=== PATIENT | male | born 1975 | race Caucasian/White ===

== ENCOUNTER 2024-03-15 09:52 | Inpatient (IN) | payer OTHER ==
[~2024-03-15] VITALS: Ht 172.7 cm; Wt 108.9 kg
[2024-03-15 09:59] VITALS: BP_SYST 211; PULSE 102; RESP 18; TEMP 98.3; O2SAT 96
[2024-03-15 10:47] LABS: BASOPHILS # (AUTO) 0.1 K/uL (0.0-0.2); BASOPHILS % (AUTO) 0.5 % (0.0-2.0); EOSINOPHILS % (AUTO) 0.1 % (0.0-4.0); HEMATOCRIT 50.7 % (36-54); HEMOGLOBIN 17.5 g/dL (14.0-18.0); MEAN CORPUSCULAR HEMOGLOBIN 31 pg (27-31); MEAN CORPUSCULAR HGB CONC 34 % (32-36); MEAN CORPUSCULAR VOLUME 89 fL (79.0-98.0); MONOCYTES # (AUTO) 0.7 K/uL (0.0-1.0); MONOCYTES % (AUTO) 5.8 % (1.7-9.3); NEUTROPHILS # (AUTO) 10.4 K/uL (1.8-7.7); NEUTROPHILS % (AUTO) 85.6 % (40.0-70.0); PLATELET COUNT (AUTO) 257 K/uL (130-430); RED BLOOD CELL COUNT(AUTO) 5.71 MIL/uL (4.2-6.2); RED CELL DISTRIBUTION WIDTH 14.4 % (9.0-15.0); WHITE BLOOD COUNT (AUTO) 12.1 K/uL (4.8-10.8)
[2024-03-15] MEDS: MORPHINE 4 MG INJ. 4 MG/ML VIAL IVP ONE ×2 (10:47→14:02)
[2024-03-15] MEDS: ONDANSETRON HCL 4 MG/2 ML VIAL IVP ONE (10:47)
[2024-03-15 11:06] LABS: BILIRUBIN,DIRECT 0.1 mg/dL (0.0-0.3); CALCIUM 8.7 mg/dL (8.4-11.0); CREATININE 0.9 mg/dL (0.55-1.30); POTASSIUM 3.4 mmol/L (3.5-5.1); TOTAL BILIRUBIN 0.5 mg/dL (0.0-1.0); TOTAL PROTEIN, SERUM 7.9 g/dL (6.4-8.3)
[2024-03-15] MEDS: LABETALOL HCL 20 MG/4 ML CARTRIDGE IVP ONE (11:35)
[2024-03-15] MEDS: ASPIRIN 325 MG TABLET PO ONE (13:12)
[2024-03-15] MEDS: hydrALAZINE HCL 20 MG/ML VIAL IVP ONE (13:12)
[2024-03-15 15:43] VITALS: BP_SYST 170; PULSE 98; RESP 20; TEMP 98.3
[2024-03-15 16:26] VITALS: O2SAT 97
[2024-03-15] MEDS ORDERED: NALOXONE HCL 0.4 MG/ML AMP (NARCAN) IVP PRN (16:30)
[2024-03-15] MEDS: MORPHINE 4 MG INJ. 4 MG/ML VIAL IVP PRN (16:50)
[2024-03-15] MEDS ORDERED: METOPROLOL TARTRATE 50 MG TABLET PO ONE (17:24)
[2024-03-15] MEDS: hydrALAZINE HCL 20 MG/ML VIAL IVP PRN (17:25)
[2024-03-15] MEDS: POTASSIUM CHLORIDE 20 MEQ TABLET.ER PO ONE (18:22)
[2024-03-15] MEDS: METOPROLOL TARTRATE 50 MG TABLET PO ONE (18:23)
[2024-03-15] MEDS: LOSARTAN POTASSIUM 50 MG TABLET (COZAAR) PO ONE (18:23)
[2024-03-15] MEDS: NIFEdipine 30 MG TAB.ER.24 PO ONE (18:23)
[2024-03-15 21:00] VITALS: BP_SYST 178; PULSE 108; RESP 18; TEMP 98.2; O2SAT 95
[2024-03-15] MEDS: METOPROLOL TARTRATE 50 MG TABLET PO SCH (21:05)
[2024-03-15] MEDS: MORPHINE 2 MG/ML INJ. SYRINGE IVP PRN (21:08)
[2024-03-15 22:37] VITALS: O2SAT 95
[2024-03-15 23:29] VITALS: BP_SYST 169; PULSE 107; RESP 18; TEMP 98.2; O2SAT 92
[2024-03-16] VITALS (7 sets, daily range): BP systolic 138–169; PULSE 94–112; RESP 18; TEMP 97.8–99.1; O2SAT 91–95
[2024-03-16 06:56] LABS: FREE T4 (FREE THYROXINE) 0.9 ng/dL (0.6-1.6); THYROID STIMULATING HORMONE 0.43 uIu/mL (0.34-4.82)
[2024-03-16] MEDS: D5NS 1,000 ML IV SCH (06:56)
[2024-03-16 07:12] LABS: BASOPHILS % (AUTO) 0.1 % (0.0-2.0); HEMATOCRIT 49.7 % (36-54); LYMPHOCYTES # (AUTO) 0.9 K/uL (1.0-5.5); MEAN CORPUSCULAR HEMOGLOBIN 31 pg (27-31); MEAN CORPUSCULAR HGB CONC 34 % (32-36); MEAN CORPUSCULAR VOLUME 89 fL (79.0-98.0); NEUTROPHILS # (AUTO) 15.4 K/uL (1.8-7.7); NEUTROPHILS % (AUTO) 83.9 % (40.0-70.0); PLATELET COUNT (AUTO) 263 K/uL (130-430); RED BLOOD CELL COUNT(AUTO) 5.56 MIL/uL (4.2-6.2); RED CELL DISTRIBUTION WIDTH 15.1 % (9.0-15.0); WHITE BLOOD COUNT (AUTO) 18.4 K/uL (4.8-10.8)
[2024-03-16 07:40] LABS: CALCIUM 8.9 mg/dL (8.4-11.0); CREATININE 0.84 mg/dL (0.55-1.30); POTASSIUM 3.9 mmol/L (3.5-5.1)
[2024-03-16] MEDS ORDERED: LORazepam 2 MG/ML VIAL IVP PRN (08:30)
[2024-03-16] MEDS: NIFEdipine 30 MG TAB.ER.24 PO SCH (08:51)
[2024-03-16] MEDS: LOSARTAN POTASSIUM 50 MG TABLET (COZAAR) PO SCH (08:52)
[2024-03-16] MEDS: cefTRIAXone 1 GM in D5W 50 ML IV SCH (08:52)
[2024-03-16] MEDS: PANTOPRAZOLE SODIUM 40 MG/VIAL (PROTONIX) IVP ONE (16:27)
[2024-03-16 22:37] LABS: BILIRUBIN,URINE NEGATIVE (NEGATIVE); BLOOD, URINE 1+ (NEGATIVE); CLARITY/URINE CLEAR (CLEAR); COLOR,URINE YELLOW (YELLOW); GLUCOSE,URINE TRACE (NEGATIVE); KETONES,URINE NEGATIVE (NEGATIVE); LEUKOCYTE ESTERASE ,URINE NEGATIVE (NEGATIVE); NITRITE, URINE NEGATIVE (NEGATIVE); PROTEIN URINE TRACE (NEGATIVE); UROBILINOGEN,URINE 0.2 (0.2-1.0)
[2024-03-16 22:53] LABS: BACTERIA,URINE RARE /HPF (None Seen); HYALINE CASTS, URINE 0-10 /LPF (None Seen); MUCUS,URINE 1+ /LPF (None Seen); WBC,URINE 0-3 /HPF (0-3)
[2024-03-17 00:05] VITALS: BP_SYST 143; PULSE 90; RESP 18; TEMP 98.2; O2SAT 92
[2024-03-17 04:22] LABS: BASOPHILS % (AUTO) 0.3 % (0.0-2.0); EOSINOPHILS % (AUTO) 0.2 % (0.0-4.0); HEMATOCRIT 47.3 % (36-54); HEMOGLOBIN 15.9 g/dL (14.0-18.0); LYMPHOCYTES # (AUTO) 1.8 K/uL (1.0-5.5); LYMPHOCYTES % (AUTO) 10.2 % (20.5-51.5); MEAN CORPUSCULAR HEMOGLOBIN 30 pg (27-31); MEAN CORPUSCULAR HGB CONC 34 % (32-36); MEAN CORPUSCULAR VOLUME 90 fL (79.0-98.0); MONOCYTES # (AUTO) 1.9 K/uL (0.0-1.0); NEUTROPHILS # (AUTO) 13.7 K/uL (1.8-7.7); NEUTROPHILS % (AUTO) 78.3 % (40.0-70.0); PLATELET COUNT (AUTO) 239 K/uL (130-430); RED BLOOD CELL COUNT(AUTO) 5.24 MIL/uL (4.2-6.2); RED CELL DISTRIBUTION WIDTH 14.9 % (9.0-15.0); WHITE BLOOD COUNT (AUTO) 17.5 K/uL (4.8-10.8)
[2024-03-17 04:33] LABS: ALBUMIN 2.8 g/dL (3.4-4.8); CALCIUM 8.3 mg/dL (8.4-11.0); CREATININE 0.8 mg/dL (0.55-1.30); POTASSIUM 3.5 mmol/L (3.5-5.1); TOTAL BILIRUBIN 0.8 mg/dL (0.0-1.0); TOTAL PROTEIN, SERUM 6.7 g/dL (6.4-8.3)
[2024-03-17 06:41] LABS: INR 1.1 (0.80-1.20); PROTHROMBIN TIME 11.4 SECS (9.5-12.5)
[2024-03-17] MEDS ORDERED: iohexoL 240 mgI/mL, 50 ML INFUS..BTL IV ONE (07:12)
[2024-03-17] MEDS ORDERED: DEXAMETHASONE SOD PHOSPHATE 4 MG/ML VIAL ONE (07:36)
[2024-03-17] MEDS ORDERED: HYDROcodone/ACETAMIN 5-325 MG TAB (NORCO/ VICODIN) PO PRN (07:45)
[2024-03-17] MEDS ORDERED: HYDROmorphone 1 MG/ML INJ. CARTRIDGE IVP PRN ×3 (07:45→08:15)
[2024-03-17] MEDS: LR 1,000 ML IV SCH (08:15)
[2024-03-17] MEDS ORDERED: ONDANSETRON HCL 4 MG/2 ML VIAL IVP PRN (08:15)
[2024-03-17] MEDS ORDERED: NALOXONE HCL 0.4 MG/ML AMP (NARCAN) IVP PRN ×2 (08:15)
[2024-03-17] MEDS: ACETAMINOPHEN I.V. 1000 MG 100 ML IV ONE (08:15)
[2024-03-17] MEDS ORDERED: METOCLOPRAMIDE HCL 10 MG/2 ML VIAL IVP PRN (08:15)
[2024-03-17] MEDS ORDERED: LABETALOL 100 MG/ 20ML VIAL IVP PRN (08:15)
[2024-03-17] MEDS ORDERED: hydrALAZINE HCL 20 MG/ML VIAL IVP PRN (08:15)
[2024-03-17 09:46] VITALS: BP_SYST 143; PULSE 90; O2SAT 98
[2024-03-17 10:30] VITALS: O2SAT 96
[2024-03-17] MEDS: PANTOPRAZOLE SODIUM 40 MG/VIAL (PROTONIX) IVP SCH (10:42)
[2024-03-17] MEDS: ONDANSETRON HCL 4 MG/2 ML VIAL IVP PRN (10:45)
[2024-03-17 12:45] VITALS: BP_SYST 135; PULSE 91; RESP 18; TEMP 98.2; O2SAT 96
[2024-03-17 16:55] VITALS: BP_SYST 142; PULSE 90; RESP 18; TEMP 98.4; O2SAT 94
[2024-03-17 20:00] VITALS: O2SAT 94
[2024-03-18 00:24] VITALS: BP_SYST 141; PULSE 103; RESP 16; TEMP 98.8; O2SAT 92
[2024-03-18 04:33] LABS: ERYTHROCYTE SEDIMENTATION RATE 45 MM/HR (0-15)
[2024-03-18 04:43] LABS: BASOPHILS % (AUTO) 0.1 % (0.0-2.0); EOSINOPHILS % (AUTO) 0.1 % (0.0-4.0); HEMATOCRIT 43.5 % (36-54); HEMOGLOBIN 14.8 g/dL (14.0-18.0); LYMPHOCYTES # (AUTO) 1.5 K/uL (1.0-5.5); LYMPHOCYTES % (AUTO) 9.2 % (20.5-51.5); MEAN CORPUSCULAR HEMOGLOBIN 31 pg (27-31); MEAN CORPUSCULAR HGB CONC 34 % (32-36); MEAN CORPUSCULAR VOLUME 91 fL (79.0-98.0); MONOCYTES # (AUTO) 2.1 K/uL (0.0-1.0); NEUTROPHILS # (AUTO) 12.5 K/uL (1.8-7.7); NEUTROPHILS % (AUTO) 77.6 % (40.0-70.0); PLATELET COUNT (AUTO) 236 K/uL (130-430); RED CELL DISTRIBUTION WIDTH 14.5 % (9.0-15.0); WHITE BLOOD COUNT (AUTO) 16.1 K/uL (4.8-10.8)
[2024-03-18 05:09] LABS: ALBUMIN 2.5 g/dL (3.4-4.8); CALCIUM 8.2 mg/dL (8.4-11.0); CREATININE 0.81 mg/dL (0.55-1.30); POTASSIUM 3.5 mmol/L (3.5-5.1); TOTAL BILIRUBIN 0.6 mg/dL (0.0-1.0); TOTAL PROTEIN, SERUM 6.4 g/dL (6.4-8.3)
[2024-03-18 08:09] VITALS: BP_SYST 126; PULSE 107; RESP 14; TEMP 97.7; O2SAT 92
[2024-03-18] MEDS ORDERED: LOSA-413 PO (11:04)
[2024-03-18] MEDS ORDERED: METO-442 PO (11:04)
[2024-03-18] MEDS ORDERED: NIFE-129 PO (11:04)
[2024-03-18] MEDS ORDERED: PRO40 PO (11:04)
[2024-03-18 12:22] VITALS: BP_SYST 120; PULSE 94; RESP 16; TEMP 98.4; O2SAT 97
[2024-03-18 15:06] VITALS: BP_SYST 116; PULSE 100; RESP 18; TEMP 98; O2SAT 96
== END 2024-03-18 15:10 | disposition home or self-care (01) | DRG 854 ==
LOC: SED 09:52 → STU 14:28 → SMU 03-16 23:52 → STU 03-16 23:56 → SMU 03-18 05:45
PROVIDERS: ADMIT Preventive Medicine Preventive Medicine/Occupational Environmental Medicine; ATTEND Preventive Medicine Preventive Medicine/Occupational Environmental Medicine
PROC: 0DNU4ZZ Release Omentum, Percutaneous Endoscopic Approach (ICD-10-PCS; 2024-03-17)
PROC: 0FT44ZZ Resection of Gallbladder, Percutaneous Endoscopic Approach (ICD-10-PCS; principal; 2024-03-17 07:36)
DX: A41.9 Sepsis, unspecified organism (principal); I16.9 Hypertensive crisis, unspecified; K80.00 Calculus of gallbladder with acute cholecystitis without obstruction; I24.89 Other forms of acute ischemic heart disease; N20.0 Calculus of kidney; E83.52 Hypercalcemia; N40.0 Benign prostatic hyperplasia without lower urinary tract symptoms; E88.09 Other disorders of plasma-protein metabolism, not elsewhere classified; E66.8 Other obesity; K76.0 Fatty (change of) liver, not elsewhere classified; Z90.49 Acquired absence of other specified parts of digestive tract; Z68.36 Body mass index [BMI] 36.0-36.9, adult; K21.9 Gastro-esophageal reflux disease without esophagitis; R16.0 Hepatomegaly, not elsewhere classified; R73.9 Hyperglycemia, unspecified
CPT/HCPCS: 36415; 71045; 76705; 78226; 80048; 80053; 80076; 81000; 81001; 81015; 83690; 84439; 84443; 84484; 85025; 85610; 85651; 85730; 86886; 86900; 86901; 87040; 87081; 87086; 88304; 93005; 93306; 94070; 96374; 96375; 99285; A9537; C1727; C9113; G0378; J0330; J0360; J0696; J1100; J2270; J2405; J2704; J2710; J3010; J3465; J3490; J7060; J7120; Q9966